=== PATIENT | female | born 1980 | race African-American/Black ===

== ENCOUNTER 2024-06-13 04:20 | Emergency (ER) | payer MEDICAID ==
[~2024-06-13] VITALS: Ht 175.3 cm; Wt 74.0 kg
[~2024-06-13 04:20] MED LIST: AMOX1TAB16 MT; HYDR25TA PO; HYDR45CR12 TP; LISI10TA26 PO
[2024-06-13 04:22] VITALS: O2SAT 99
[2024-06-13 06:17] LABS: BASOPHILS % 0.3 % (0.0-2.0); EOSINOPHILS % 0.1 % (0.0-5.0); HEMATOCRIT. 41.1 % (36.0-48.0); HEMOGLOBIN. 13.2 g/dL (12.0-16.0); LYMPHOCYTES % 32.3 % (20.0-50.0); MEAN CORPUSCULAR HEMOGLOBIN 28.9 pg (28.0-32.0); MEAN CORPUSCULAR HGB CONC 32.2 g/dL (31.0-37.0); MEAN CORPUSCULAR VOLUME 89.8 fL (81.0-99.0); MEAN PLATELET VOLUME 8.7 fl (7.4-10.4); MONOCYTES % 3.5 % (2.0-8.0); NEUTROPHILS % 63.8 % (40.0-76.0); PLATELET 258 x1000/uL (130-400); RED BLOOD CELL COUNT 4.57 mill/uL (4.2-5.4); RED CELL DISTRIBUTION WIDTH 15.5 % (11.6-14.6); WHITE BLOOD COUNT 10.2 x1000/uL (4.5-11.0)
[2024-06-13 06:41] LABS: CHLORIDE 107 mEq/L (98-107); POTASSIUM 3.7 mEq/L (3.5-5.1); SODIUM 143 mEq/L (136-145)
[2024-06-13 06:42] LABS: CARBON DIOXIDE 19 mEq/L (21-32)
[2024-06-13 06:47] LABS: CREATININE 0.9 mg/dL (0.6-1.0); GLUCOSE 65 mg/dL (70-105); UREA NITROGEN BLOOD 12 mg/dL (9-23)
[2024-06-13 06:57] LABS: ETHANOL BLOOD 283 mg/dL (<10)
[2024-06-13] MEDS: ONDANSETRON HCL 4MG TABLET PO ONE (07:02)
[2024-06-13 07:05] LABS: HCG SCREEN NEGATIVE
[2024-06-13 12:35] LABS: CALCIUM 9.8 mg/dL (8.7-10.4)
[2024-06-13] MEDS ORDERED: AMOX1TAB16 MT (17:14)
[2024-06-13] MEDS: MAGNESIUM/ALUMINUM HYDROXIDE/SIMETHICONE 30ML UDC PO ONE (17:17)
[2024-06-13] MEDS: LORAZEPAM 1MG TABLET PO ONE (17:17)
[2024-06-13] MEDS: AMOXICILLIN/POTASSIUM CLAVULANATE 875/125MG TAB PO SCH (17:17)
[2024-06-13] MEDS: ACETAMINOPHEN 325MG TABLET PO ONE (17:18)
[2024-06-13] MEDS: TETANUS, DIPHTHERIA, PERTUSSIS VAC/PF 0.5ML (>10YR OLD) IM ONE (18:44)
[2024-06-13 20:25] LABS: CLARITY URINE CLOUDY (CLEAR); COLOR URINE YELLOW (YELLOW); GLUCOSE URINE NEGATIVE (NEGATIVE); KETONES URINE 2+ (NEGATIVE); LEUKOCYTE ESTERASE URINE TRACE (NEGATIVE); NITRITE URINE NEGATIVE (NEGATIVE); OCCULT BLOOD URINE NEGATIVE (NEGATIVE); PH URINE 5.5 (4.5-8.0); PROTEIN URINE TRACE (NEGATIVE); SPECIFIC GRAVITY URINE 1.023 (1.005-1.030); UROBILINOGEN URINE 0.2 E.U./dL (0.2-1.0)
[2024-06-13] MEDS: RISPERIDONE 0.5MG TABLET PO SCH (20:32)
[2024-06-13 20:41] LABS: BACTERIA URINE 3+; RBC URINE 0-2 /hpf (0-2); SQUAMOUS EPITHELIAL CELL URINE 2+ /lpf (RARE/1+)
[2024-06-13 20:45] LABS: *AMPHETAMINES SCREEN URINE PRESUMPTIVE POSITIVE (NEGATIVE); *BARBITURATES SCREEN URINE NEGATIVE (NEGATIVE); *BENZODIAZEPINES SCREEN URINE NEGATIVE (NEGATIVE); *COCAINE SCREEN URINE NEGATIVE (NEGATIVE); CANNABINOID URINE SCREEN PRESUMPTIVE POSITIVE (NEGATIVE); ECSTASY MDMA SCREEN URINE NEGATIVE (NEGATIVE); METHADONE URINE SCREEN NEGATIVE (NEGATIVE); OPIATES URINE SCREEN NEGATIVE (NEGATIVE); PHENCYCLIDINE URINE SCREEN NEGATIVE (NEGATIVE)
[2024-06-14] MEDS: ACETAMINOPHEN 325MG TABLET PO ONE (06:30)
[2024-06-14 12:15] VITALS: BP 120/86; PULSE 84; RESP 16; TEMP 36.7; O2SAT 99
[2024-06-19] MEDS ORDERED: FLUC200T51 MT (15:26)
[2024-06-19] MEDS ORDERED: CLOT15CR27 TP (15:26)
== END 2024-06-14 12:51 | disposition short-term general hospital (02) ==
LOC: ER 04:20
DX: R45.851 Suicidal ideations (principal); F20.9 Schizophrenia, unspecified; F31.9 Bipolar disorder, unspecified; F41.9 Anxiety disorder, unspecified; I10 Essential (primary) hypertension; F12.90 Cannabis use, unspecified, uncomplicated; Z59.01 Sheltered homelessness; Z79.899 Other long term (current) drug therapy; Z20.822 Contact with and (suspected) exposure to COVID-19
CPT/HCPCS: 80305; 80048; 81003; 80320; 84703; 85025; 36415 ×2; 90715; 96372; 99285; 87426; 80307; 80329; Q0162; Z7610; G0480

== ENCOUNTER 2024-06-23 23:40 | Emergency (ER) | payer MEDICAID ==
[~2024-06-23] VITALS: Ht 175.3 cm; Wt 72.0 kg
[~2024-06-23 23:40] MED LIST changes: -AMOX1TAB16 MT; +CLOT15CR27 TP; +FLUC200T51 MT
[2024-06-24 02:39] VITALS: O2SAT 98
[2024-06-24] MEDS: KETOROLAC 30MG/ML VIAL IV STA (07:00)
[2024-06-24 08:01] LABS: BASOPHILS % 0.9 % (0.0-2.0); EOSINOPHILS % 0.1 % (0.0-5.0); HEMOGLOBIN. 11.4 g/dL (12.0-16.0); LYMPHOCYTES % 39.1 % (20.0-50.0); MEAN CORPUSCULAR HEMOGLOBIN 28.3 pg (28.0-32.0); MEAN CORPUSCULAR HGB CONC 31.8 g/dL (31.0-37.0); MEAN CORPUSCULAR VOLUME 88.9 fL (81.0-99.0); MEAN PLATELET VOLUME 8.1 fl (7.4-10.4); MONOCYTES % 3.8 % (2.0-8.0); NEUTROPHILS % 56.1 % (40.0-76.0); PLATELET 312 x1000/uL (130-400); RED BLOOD CELL COUNT 4.05 mill/uL (4.2-5.4); RED CELL DISTRIBUTION WIDTH 16.1 % (11.6-14.6); WHITE BLOOD COUNT 6.7 x1000/uL (4.5-11.0)
[2024-06-24 08:09] LABS: CHLORIDE 108 mEq/L (98-107); POTASSIUM 3.9 mEq/L (3.5-5.1); SODIUM 140 mEq/L (136-145)
[2024-06-24 08:10] LABS: CARBON DIOXIDE 19 mEq/L (21-32)
[2024-06-24 08:11] LABS: CALCIUM 9.4 mg/dL (8.7-10.4)
[2024-06-24 08:15] LABS: GLUCOSE 67 mg/dL (70-105)
[2024-06-24 08:16] LABS: TROPONIN I HIGH SENSITIVITY 4 ng/L (3.0-34); UREA NITROGEN BLOOD 12 mg/dL (9-23)
[2024-06-24 09:24] LABS: CLARITY URINE CLOUDY (CLEAR); COLOR URINE YELLOW (YELLOW); GLUCOSE URINE NEGATIVE (NEGATIVE); KETONES URINE NEGATIVE (NEGATIVE); LEUKOCYTE ESTERASE URINE NEGATIVE (NEGATIVE); NITRITE URINE NEGATIVE (NEGATIVE); OCCULT BLOOD URINE 3+ (NEGATIVE); PH URINE 5.5 (4.5-8.0); PROTEIN URINE 1+ (NEGATIVE); SPECIFIC GRAVITY URINE 1.011 (1.005-1.030); UROBILINOGEN URINE 0.2 E.U./dL (0.2-1.0)
[2024-06-24] MEDS: VISCOUS LIDOCAINE 2% 15 ML UDC PO ONE (09:59)
[2024-06-24] MEDS: MAGNESIUM/ALUMINUM HYDROXIDE/SIMETHICONE 30ML UDC PO ONE (09:59)
[2024-06-24 10:21] LABS: SQUAMOUS EPITHELIAL CELL URINE 3+ /lpf (RARE/1+)
[2024-06-24 10:23] LABS: BACTERIA URINE 2+
[2024-06-24 10:24] LABS: WBC URINE 0-2 /hpf (0-2)
[2024-06-24] MEDS: DICYCLOMINE 10 MG/5 ML ORAL SYR PO ONE (12:49)
[2024-06-24] MEDS: ONDANSETRON HCL 4MG/2ML INJ IV ONE (12:49)
[2024-06-24] MEDS: ACETAMINOPHEN 325MG TABLET PO ONE (12:49)
[2024-06-24] MEDS: SODIUM CHLORIDE 0.9% 1,000 ML IV ONE (12:53)
[2024-06-24 14:28] VITALS: BP 121/78; PULSE 72; RESP 16; TEMP 36.7; O2SAT 97
== END 2024-06-24 14:29 | disposition home or self-care (01) ==
LOC: ER 23:40
DX: R07.89 Other chest pain (principal); R11.2 Nausea with vomiting, unspecified; F41.9 Anxiety disorder, unspecified; F31.9 Bipolar disorder, unspecified; F20.9 Schizophrenia, unspecified; I10 Essential (primary) hypertension; Z79.899 Other long term (current) drug therapy
CPT/HCPCS: 99285; 96374; 71045; 96361; 96375; 80048; 81003; 81025; 85025; 84484; 36415; 93005; J1885; J2405; J7030

== ENCOUNTER 2024-07-07 21:39 | Emergency (ER) | payer MEDICAID ==
[~2024-07-07] VITALS: Ht 177.8 cm; Wt 76.0 kg
[2024-07-07 22:20] VITALS: TEMP 36.8; O2SAT 100
[2024-07-07 23:03] LABS: BASOPHILS % 0.9 % (0.0-2.0); HEMATOCRIT. 36.7 % (36.0-48.0); LYMPHOCYTES % 25.8 % (20.0-50.0); MEAN CORPUSCULAR HEMOGLOBIN 28.9 pg (28.0-32.0); MEAN CORPUSCULAR HGB CONC 32.6 g/dL (31.0-37.0); MEAN CORPUSCULAR VOLUME 88.7 fL (81.0-99.0); MEAN PLATELET VOLUME 7.9 fl (7.4-10.4); MONOCYTES % 5.8 % (2.0-8.0); NEUTROPHILS % 67.5 % (40.0-76.0); PLATELET 262 x1000/uL (130-400); RED BLOOD CELL COUNT 4.14 mill/uL (4.2-5.4); RED CELL DISTRIBUTION WIDTH 16.8 % (11.6-14.6); WHITE BLOOD COUNT 6.7 x1000/uL (4.5-11.0)
[2024-07-07 23:11] LABS: CHLORIDE 103 mEq/L (98-107); SODIUM 140 mEq/L (136-145)
[2024-07-07 23:12] LABS: CALCIUM 9.5 mg/dL (8.7-10.4); CARBON DIOXIDE 24 mEq/L (21-32)
[2024-07-07 23:14] LABS: HCG SCREEN NEGATIVE
[2024-07-07 23:17] LABS: CREATININE 1.1 mg/dL (0.6-1.0); GLUCOSE 68 mg/dL (70-105)
[2024-07-07 23:18] LABS: ETHANOL BLOOD 300 mg/dL (<10); TROPONIN I HIGH SENSITIVITY 6 ng/L (3.0-34); UREA NITROGEN BLOOD 11 mg/dL (9-23)
[2024-07-07 23:19] LABS: ACETAMINOPHEN < 2 ug/mL (10-30); ALANINE AMINOTRANSFERASE 27 IU/L (10-49); ALBUMIN 4.3 g/dL (3.2-4.8); ASPARTATE AMINOTRANSFERASE 33 IU/L (<34); BILIRUBIN DIRECT 0.2 mg/dL (<=3.0)
[2024-07-07 23:20] LABS: BILIRUBIN TOTAL 0.5 mg/dL (0.1-1.0); PROTEIN TOTAL 8.3 g/dL (6.0-8.3)
[2024-07-08 00:43] LABS: TROPONIN I HIGH SENSITIVITY 6 ng/L (3.0-34)
[2024-07-08] MEDS: LORAZEPAM 1MG TABLET PO ONE (05:58)
[2024-07-08] MEDS: ONDANSETRON 4MG ODT PO ONE (05:59)
[2024-07-08 11:33] VITALS: BP 138/78; PULSE 68; RESP 18; O2SAT 97
[2024-07-08 11:51] LABS: CLARITY URINE CLEAR (CLEAR); COLOR URINE YELLOW (YELLOW); GLUCOSE URINE NEGATIVE (NEGATIVE); KETONES URINE 3+ (NEGATIVE); LEUKOCYTE ESTERASE URINE NEGATIVE (NEGATIVE); NITRITE URINE NEGATIVE (NEGATIVE); OCCULT BLOOD URINE 2+ (NEGATIVE); PH URINE 5.5 (4.5-8.0); PROTEIN URINE TRACE (NEGATIVE); SPECIFIC GRAVITY URINE 1.023 (1.005-1.030)
[2024-07-08 12:14] LABS: *AMPHETAMINES SCREEN URINE PRESUMPTIVE POSITIVE (NEGATIVE); *BARBITURATES SCREEN URINE NEGATIVE (NEGATIVE); *BENZODIAZEPINES SCREEN URINE NEGATIVE (NEGATIVE); *COCAINE SCREEN URINE PRESUMPTIVE POSITIVE (NEGATIVE); CANNABINOID URINE SCREEN PRESUMPTIVE POSITIVE (NEGATIVE); ECSTASY MDMA SCREEN URINE NEGATIVE (NEGATIVE); METHADONE URINE SCREEN NEGATIVE (NEGATIVE); OPIATES URINE SCREEN NEGATIVE (NEGATIVE); PHENCYCLIDINE URINE SCREEN NEGATIVE (NEGATIVE)
[2024-07-08 12:16] LABS: RBC URINE 25-50 /hpf (0-2); WBC URINE NONE SEEN /hpf (0-2)
[2024-07-08 12:17] LABS: BACTERIA URINE TRACE; SQUAMOUS EPITHELIAL CELL URINE 1+ /lpf (RARE/1+)
== END 2024-07-08 11:27 ==
LOC: ER 21:39
DX: R45.851 Suicidal ideations (principal); F19.10 Other psychoactive substance abuse, uncomplicated; F41.9 Anxiety disorder, unspecified; F20.9 Schizophrenia, unspecified; F31.9 Bipolar disorder, unspecified; I10 Essential (primary) hypertension; Z20.822 Contact with and (suspected) exposure to COVID-19; Z79.899 Other long term (current) drug therapy
CPT/HCPCS: 80076; 80048; 80307; 80329; 80320; 84703; 83690; 85025; 84484 ×2; 36415; 71045; 93005; 99285; 80305; 81003; 87426; Q0162; G0480

== ENCOUNTER 2024-07-11 13:23 | Emergency (ER) | payer MEDICAID ==
[~2024-07-11] VITALS: Ht 172.7 cm; Wt 82.0 kg
[2024-07-11 13:27] VITALS: O2SAT 100
[2024-07-11] MEDS: DICYCLOMINE 10 MG/5 ML ORAL SYR PO STA (14:14)
[2024-07-11] MEDS: DICYCLOMINE HCL 10MG CAPSULE PO NR (14:32)
[2024-07-11] MEDS: ONDANSETRON 4MG ODT PO STA (14:32)
[2024-07-11 15:44] LABS: BASOPHILS % 0.5 % (0.0-2.0); EOSINOPHILS % 0.1 % (0.0-5.0); HEMATOCRIT. 38.9 % (36.0-48.0); HEMOGLOBIN. 12.8 g/dL (12.0-16.0); LYMPHOCYTES % 36.9 % (20.0-50.0); MEAN CORPUSCULAR VOLUME 87.8 fL (81.0-99.0); MEAN PLATELET VOLUME 8.2 fl (7.4-10.4); MONOCYTES % 6.1 % (2.0-8.0); NEUTROPHILS % 56.4 % (40.0-76.0); PLATELET 286 x1000/uL (130-400); RED BLOOD CELL COUNT 4.43 mill/uL (4.2-5.4); RED CELL DISTRIBUTION WIDTH 16.1 % (11.6-14.6)
[2024-07-11 15:53] LABS: CHLORIDE 95 mEq/L (98-107); POTASSIUM 4.1 mEq/L (3.5-5.1); SODIUM 134 mEq/L (136-145)
[2024-07-11 15:54] LABS: CALCIUM 9.3 mg/dL (8.7-10.4); CARBON DIOXIDE 27 mEq/L (21-32)
[2024-07-11 15:57] LABS: HCG SCREEN NEGATIVE
[2024-07-11 15:59] LABS: CREATININE 1.1 mg/dL (0.6-1.0); GLUCOSE 77 mg/dL (70-105); UREA NITROGEN BLOOD 9 mg/dL (9-23)
[2024-07-11] MEDS: LORAZEPAM 1MG TABLET PO ONE (17:32)
[2024-07-11] MEDS: ACETAMINOPHEN 325MG TABLET PO STA (19:39)
[2024-07-12] MEDS: MAGNESIUM/ALUMINUM HYDROXIDE/SIMETHICONE 30ML UDC PO ONE ×2 (01:44→01:49)
[2024-07-12] MEDS: DIPHENHYDRAMINE 25MG CAPSULE PO ONE ×2 (01:44→01:48)
[2024-07-12 02:52] LABS: *AMPHETAMINES SCREEN URINE PRESUMPTIVE POSITIVE (NEGATIVE); *BARBITURATES SCREEN URINE NEGATIVE (NEGATIVE); *BENZODIAZEPINES SCREEN URINE NEGATIVE (NEGATIVE); *COCAINE SCREEN URINE NEGATIVE (NEGATIVE)
[2024-07-12 02:53] LABS: CANNABINOID URINE SCREEN PRESUMPTIVE POSITIVE (NEGATIVE); ECSTASY MDMA SCREEN URINE NEGATIVE (NEGATIVE); METHADONE URINE SCREEN NEGATIVE (NEGATIVE); OPIATES URINE SCREEN NEGATIVE (NEGATIVE); PHENCYCLIDINE URINE SCREEN NEGATIVE (NEGATIVE)
[2024-07-12 03:03] LABS: CLARITY URINE CLEAR (CLEAR); COLOR URINE YELLOW (YELLOW); SPECIFIC GRAVITY URINE 1.022 (1.005-1.030)
[2024-07-12 03:08] LABS: GLUCOSE URINE NEGATIVE (NEGATIVE); KETONES URINE 1+ (NEGATIVE); LEUKOCYTE ESTERASE URINE NEGATIVE (NEGATIVE); NITRITE URINE NEGATIVE (NEGATIVE); OCCULT BLOOD URINE NEGATIVE (NEGATIVE); PH URINE 5.5 (4.5-8.0); PROTEIN URINE NEGATIVE (NEGATIVE)
[2024-07-12 17:08] VITALS: BP 117/75; PULSE 95; RESP 16; TEMP 36.9; O2SAT 98
[2024-07-12] MEDS ORDERED: RISPERIDONE 0.5MG TABLET PO SCH (21:00)
== END 2024-07-12 17:32 ==
LOC: ER 13:41
DX: R45.851 Suicidal ideations (principal); F31.9 Bipolar disorder, unspecified; F41.0 Panic disorder [episodic paroxysmal anxiety]; F20.9 Schizophrenia, unspecified; I10 Essential (primary) hypertension; Z79.899 Other long term (current) drug therapy; Z20.822 Contact with and (suspected) exposure to COVID-19
CPT/HCPCS: 80048; 80307; 80329; 84703; 83690; 85025; 36415; 71045; 93005; 99285; 80305; 81003; 87426; Q0162; Q0163

== ENCOUNTER 2024-07-20 01:06 | Emergency (ER) | payer MEDICAID, OTHER ==
[~2024-07-20] VITALS: Ht 167.6 cm; Wt 73.0 kg
[2024-07-20 01:08] VITALS: TEMP 36.8; O2SAT 99
[2024-07-20] MEDS ORDERED: ACETAMINOPHEN 325MG TABLET PO ONE (01:15)
[2024-07-20 02:10] LABS: BASOPHILS % 0.7 % (0.0-2.0); EOSINOPHILS % 0.2 % (0.0-5.0); HEMATOCRIT. 34.6 % (36.0-48.0); HEMOGLOBIN. 11.4 g/dL (12.0-16.0); LYMPHOCYTES % 39.7 % (20.0-50.0); MEAN CORPUSCULAR HEMOGLOBIN 28.6 pg (28.0-32.0); MEAN CORPUSCULAR HGB CONC 32.9 g/dL (31.0-37.0); MEAN CORPUSCULAR VOLUME 87.1 fL (81.0-99.0); MEAN PLATELET VOLUME 7.6 fl (7.4-10.4); MONOCYTES % 9.7 % (2.0-8.0); NEUTROPHILS % 49.7 % (40.0-76.0); PLATELET 290 x1000/uL (130-400); RED BLOOD CELL COUNT 3.97 mill/uL (4.2-5.4); RED CELL DISTRIBUTION WIDTH 15.5 % (11.6-14.6); WHITE BLOOD COUNT 6.1 x1000/uL (4.5-11.0)
[2024-07-20 02:18] LABS: CHLORIDE 102 mEq/L (98-107); POTASSIUM 3.7 mEq/L (3.5-5.1); SODIUM 136 mEq/L (136-145)
[2024-07-20 02:19] LABS: CALCIUM 9.3 mg/dL (8.7-10.4); CARBON DIOXIDE 25 mEq/L (21-32)
[2024-07-20 02:24] LABS: CREATININE 0.9 mg/dL (0.6-1.0); GLUCOSE 97 mg/dL (70-105)
[2024-07-20 02:25] LABS: UREA NITROGEN BLOOD 6 mg/dL (9-23)
[2024-07-20 02:26] LABS: ALANINE AMINOTRANSFERASE 31 IU/L (10-49); ALBUMIN 4.4 g/dL (3.2-4.8); ASPARTATE AMINOTRANSFERASE 26 IU/L (<34); BILIRUBIN DIRECT 0.1 mg/dL (<=3.0)
[2024-07-20 02:27] LABS: BILIRUBIN TOTAL 0.3 mg/dL (0.1-1.0); PROTEIN TOTAL 8.8 g/dL (6.0-8.3)
[2024-07-20] MEDS ORDERED: ACET-2708 MT (02:44)
[2024-07-20 02:46] LABS: PROTHROMBIN TIME 10.4 sec (9.6-11.0)
[2024-07-20 02:55] VITALS: BP 145/105; PULSE 99; RESP 18; O2SAT 99
== END 2024-07-20 03:04 | disposition home or self-care (01) ==
LOC: ER 01:06
DX: R10.9 Unspecified abdominal pain (principal); F12.10 Cannabis abuse, uncomplicated; I10 Essential (primary) hypertension; F32.A Depression, unspecified; Z00.00 Encounter for general adult medical examination without abnormal findings; Z79.899 Other long term (current) drug therapy; Z86.59 Personal history of other mental and behavioral disorders
CPT/HCPCS: 36415; 80048; 80076; 85025; 99283

== ENCOUNTER 2024-07-22 19:09 | Emergency (ER) | payer OTHER ==
[~2024-07-22] VITALS: Ht 170.2 cm; Wt 68.0 kg
[~2024-07-22 19:09] MED LIST changes: +ACET-2708 MT
[2024-07-22 19:12] VITALS: BP 137/99; PULSE 88; RESP 16; TEMP 36.9; O2SAT 98
== END 2024-07-22 19:28 | disposition home or self-care (01) ==
LOC: ER 19:09
DX: R07.89 Other chest pain (principal); F20.9 Schizophrenia, unspecified; I10 Essential (primary) hypertension; F32.A Depression, unspecified; F12.90 Cannabis use, unspecified, uncomplicated; Z79.899 Other long term (current) drug therapy
CPT/HCPCS: 99283

== ENCOUNTER 2024-07-30 03:37 | Emergency (ER) | payer OTHER ==
[~2024-07-30] VITALS: Ht 172.7 cm; Wt 72.6 kg
[2024-07-30 03:39] VITALS: TEMP 36.8; O2SAT 100
[2024-07-30 04:01] VITALS: BP 141/100; PULSE 69; RESP 14; O2SAT 100
[2024-07-30] MEDS: LORAZEPAM 1MG TABLET PO ONE (04:17)
== END 2024-07-30 04:36 | disposition home or self-care (01) ==
LOC: ER 04:18
DX: R07.89 Other chest pain (principal); F41.9 Anxiety disorder, unspecified; F20.9 Schizophrenia, unspecified; I10 Essential (primary) hypertension; Z79.899 Other long term (current) drug therapy
CPT/HCPCS: 71045; 99283

== ENCOUNTER 2024-10-25 15:29 | Emergency (ER) | payer OTHER ==
[~2024-10-25] VITALS: Ht 177.8 cm; Wt 72.0 kg
[2024-10-25 15:40] VITALS: O2SAT 100
[2024-10-25] MEDS ORDERED: FAMOTIDINE 20MG/2ML VIAL IV ONE (16:45)
[2024-10-25] MEDS ORDERED: ONDANSETRON HCL 4MG/2ML INJ IV ONE (16:45)
[2024-10-25] MEDS ORDERED: KETOROLAC 15MG/ML VIAL IV ONE (16:45)
[2024-10-25 18:27] LABS: BASOPHILS % 1.1 % (0.0-2.0); EOSINOPHILS % 1.8 % (0.0-5.0); HEMATOCRIT. 36.0 % (36.0-48.0); HEMOGLOBIN. 11.8 g/dL (12.0-16.0); LYMPHOCYTES % 23.2 % (20.0-50.0); MEAN PLATELET VOLUME 8.6 fl (7.4-10.4); MONOCYTES % 7.7 % (2.0-8.0); NEUTROPHILS % 66.2 % (40.0-76.0); PLATELET 282 x1000/uL (130-400); RED BLOOD CELL COUNT 4.16 mill/uL (4.2-5.4); RED CELL DISTRIBUTION WIDTH 14.5 % (11.6-14.6)
[2024-10-25] MEDS: KETOROLAC 15MG/ML VIAL IV NR (18:31)
[2024-10-25] MEDS: SODIUM CHLORIDE 0.9% 1,000 ML IV ONE (18:31)
[2024-10-25] MEDS: FAMOTIDINE 20MG/2ML VIAL IV NR (18:31)
[2024-10-25] MEDS: ONDANSETRON HCL 4MG/2ML INJ IV NR (18:32)
[2024-10-25 18:40] LABS: CREATININE 0.8 mg/dL (0.6-1.0); INR 1.0; UREA NITROGEN BLOOD 6 mg/dL (9-23)
[2024-10-25 18:42] LABS: ASPARTATE AMINOTRANSFERASE 52 IU/L (<34); BILIRUBIN DIRECT 0.2 mg/dL (<=3.0); BILIRUBIN TOTAL 0.5 mg/dL (0.1-1.0); PROTEIN TOTAL 7.7 g/dL (6.0-8.3)
[2024-10-25 19:15] LABS: INFLUENZA TYPE A Presumptive Negative (Pres. Neg.)
[2024-10-25 19:16] LABS: INFLUENZA TYPE B Presumptive Negative (Pres. Neg.)
[2024-10-25 19:17] LABS: RESPIRATORY SYNCYTIAL VIRUS Not Detected (Not Detectd)
[2024-10-25] MEDS ORDERED: CEPH500T MT (21:21)
[2024-10-25] MEDS ORDERED: ONDA-239 PO (21:21)
[2024-10-25] MEDS ORDERED: KETO10TA2 MT (21:21)
[2024-10-25] MEDS: ONDANSETRON 4MG ODT PO ONE (22:05)
[2024-10-25] MEDS: LORAZEPAM 1MG TABLET PO ONE (22:05)
[2024-10-25 22:11] VITALS: BP 131/79; PULSE 74; RESP 16; TEMP 36.7; O2SAT 97
== END 2024-10-25 22:14 | disposition home or self-care (01) ==
LOC: ER 15:29
DX: J06.9 Acute upper respiratory infection, unspecified (principal); B97.89 Other viral agents as the cause of diseases classified elsewhere; F20.9 Schizophrenia, unspecified; F41.9 Anxiety disorder, unspecified; I10 Essential (primary) hypertension; F31.9 Bipolar disorder, unspecified; Z79.899 Other long term (current) drug therapy; Z20.822 Contact with and (suspected) exposure to COVID-19; Z98.890 Other specified postprocedural states
CPT/HCPCS: 80076; 80048; 85025; 85610; 87420; 87804 ×2; 36415; 71045; 96361; 96374; 96375; 99285; 87426; Q0162; J1308; J1885; J2405; J7030; Z7610 ×3

== ENCOUNTER 2024-10-26 04:35 | Emergency (ER) | payer OTHER ==
[~2024-10-26] VITALS: Ht 167.6 cm; Wt 73.0 kg
[~2024-10-26 04:35] MED LIST changes: +CEPH500T MT; +KETO10TA2 MT; +ONDA-239 PO
[2024-10-26 04:46] VITALS: O2SAT 98
[2024-10-26 06:03] LABS: BASOPHILS % 1.1 % (0.0-2.0); EOSINOPHILS % 5.1 % (0.0-5.0); HEMATOCRIT. 35.5 % (36.0-48.0); HEMOGLOBIN. 11.4 g/dL (12.0-16.0); LYMPHOCYTES % 26.1 % (20.0-50.0); MEAN PLATELET VOLUME 8.2 fl (7.4-10.4); MONOCYTES % 10.0 % (2.0-8.0); NEUTROPHILS % 57.7 % (40.0-76.0); PLATELET 261 x1000/uL (130-400); RED BLOOD CELL COUNT 4.03 mill/uL (4.2-5.4); RED CELL DISTRIBUTION WIDTH 14.6 % (11.6-14.6)
[2024-10-26 06:20] LABS: CREATININE 1.0 mg/dL (0.6-1.0); ETHANOL BLOOD < 10 mg/dL (<10); UREA NITROGEN BLOOD 7 mg/dL (9-23)
[2024-10-26 07:50] LABS: HCG SCREEN NEGATIVE
[2024-10-26 15:02] LABS: CLARITY URINE CLEAR (CLEAR); COLOR URINE YELLOW (YELLOW); GLUCOSE URINE NEGATIVE (NEGATIVE); KETONES URINE TRACE (NEGATIVE); LEUKOCYTE ESTERASE URINE NEGATIVE (NEGATIVE); NITRITE URINE NEGATIVE (NEGATIVE); OCCULT BLOOD URINE NEGATIVE (NEGATIVE); PH URINE 6.5 (4.5-8.0); PROTEIN URINE NEGATIVE (NEGATIVE); SPECIFIC GRAVITY URINE 1.016 (1.005-1.030); UROBILINOGEN URINE 1.0 E.U./dL (0.2-1.0)
[2024-10-26 15:32] LABS: *AMPHETAMINES SCREEN URINE PRESUMPTIVE POSITIVE (NEGATIVE); *BARBITURATES SCREEN URINE NEGATIVE (NEGATIVE); *BENZODIAZEPINES SCREEN URINE NEGATIVE (NEGATIVE)
[2024-10-26 15:33] LABS: *COCAINE SCREEN URINE PRESUMPTIVE POSITIVE (NEGATIVE); CANNABINOID URINE SCREEN PRESUMPTIVE POSITIVE (NEGATIVE); ECSTASY MDMA SCREEN URINE NEGATIVE (NEGATIVE); METHADONE URINE SCREEN NEGATIVE (NEGATIVE); OPIATES URINE SCREEN NEGATIVE (NEGATIVE); PHENCYCLIDINE URINE SCREEN PRESUMTIVE POSITIVE (NEGATIVE)
[2024-10-26 19:30] VITALS: BP 122/77; PULSE 83; RESP 20; TEMP 36.9; O2SAT 99
== END 2024-10-26 19:30 | disposition home or self-care (01) ==
LOC: ER 04:35
DX: R45.851 Suicidal ideations (principal); F12.10 Cannabis abuse, uncomplicated; F17.200 Nicotine dependence, unspecified, uncomplicated; I10 Essential (primary) hypertension; Z20.822 Contact with and (suspected) exposure to COVID-19; Z86.59 Personal history of other mental and behavioral disorders; Z79.899 Other long term (current) drug therapy
CPT/HCPCS: 36415; 80048; 80305; 80307; 80320; 80329; 81003; 84703; 85025; 87426; 99291; G0480

== ENCOUNTER 2024-10-30 01:40 | Emergency (ER) | payer OTHER ==
[~2024-10-30] VITALS: Ht 177.8 cm; Wt 72.0 kg
[2024-10-30 01:45] VITALS: O2SAT 95
[2024-10-30 01:50] VITALS: BP 169/103; PULSE 106; RESP 18; TEMP 36.8; O2SAT 100
[2024-10-30 03:17] LABS: CREATININE 0.9 mg/dL (0.6-1.0); UREA NITROGEN BLOOD < 5 mg/dL (9-23)
[2024-10-30 04:26] LABS: TROPONIN I HIGH SENSITIVITY 7 ng/L (3.0-34)
== END 2024-10-30 04:09 | disposition left against medical advice (07) ==
LOC: ER 01:40
DX: R07.89 Other chest pain (principal); R06.02 Shortness of breath; R11.2 Nausea with vomiting, unspecified; R10.13 Epigastric pain; Z53.21 Procedure and treatment not carried out due to patient leaving prior to being seen by health care provider
CPT/HCPCS: 36415; 71045; 80048; 84484; 93005

== ENCOUNTER 2024-11-01 14:43 | Emergency (ER) | payer OTHER ==
[~2024-11-01] VITALS: Ht 165.1 cm; Wt 64.0 kg
[2024-11-01 14:46] VITALS: O2SAT 100
[2024-11-01 14:49] VITALS: BP 125/83; PULSE 99; RESP 18; TEMP 36.8; O2SAT 100
[2024-11-01 15:27] LABS: BASOPHILS % 1.1 % (0.0-2.0); EOSINOPHILS % 5.7 % (0.0-5.0); HEMATOCRIT. 32.9 % (36.0-48.0); HEMOGLOBIN. 10.7 g/dL (12.0-16.0); LYMPHOCYTES % 25.9 % (20.0-50.0); MEAN PLATELET VOLUME 8.4 fl (7.4-10.4); MONOCYTES % 9.5 % (2.0-8.0); NEUTROPHILS % 57.8 % (40.0-76.0); PLATELET 276 x1000/uL (130-400); RED BLOOD CELL COUNT 3.79 mill/uL (4.2-5.4); RED CELL DISTRIBUTION WIDTH 14.5 % (11.6-14.6)
[2024-11-01 15:43] LABS: CREATININE 1.0 mg/dL (0.6-1.0); UREA NITROGEN BLOOD 10 mg/dL (9-23)
[2024-11-01 15:45] LABS: TROPONIN I HIGH SENSITIVITY < 4 ng/L (3.0-34)
[2024-11-01 15:50] LABS: HCG SCREEN NEGATIVE
[2024-11-01] MEDS ORDERED: NITR-87 MT (15:53)
[2024-11-01] MEDS ORDERED: TOPUD MT (15:53)
== END 2024-11-01 16:17 | disposition home or self-care (01) ==
LOC: ER 14:43
DX: N30.00 Acute cystitis without hematuria (principal); F20.9 Schizophrenia, unspecified; I10 Essential (primary) hypertension; F41.9 Anxiety disorder, unspecified; F12.90 Cannabis use, unspecified, uncomplicated; Z79.899 Other long term (current) drug therapy
CPT/HCPCS: 36415; 71045; 80048; 83880; 84484; 84703; 85025; 93005; 99285

== ENCOUNTER 2024-11-02 11:40 | Emergency (ER) | payer OTHER ==
[~2024-11-02] VITALS: Ht 180.3 cm; Wt 70.0 kg
[~2024-11-02 11:40] MED LIST changes: +NITR-87 MT; +TOPUD MT
[2024-11-02 11:45] VITALS: O2SAT 100
[2024-11-02 11:49] VITALS: BP 126/99; PULSE 100; RESP 16; TEMP 36.7; O2SAT 100
[2024-11-02 12:39] LABS: BASOPHILS % 0.9 % (0.0-2.0); EOSINOPHILS % 5.7 % (0.0-5.0); HEMATOCRIT. 34.2 % (36.0-48.0); HEMOGLOBIN. 10.9 g/dL (12.0-16.0); LYMPHOCYTES % 30.2 % (20.0-50.0); MEAN PLATELET VOLUME 8.2 fl (7.4-10.4); MONOCYTES % 11.4 % (2.0-8.0); NEUTROPHILS % 51.8 % (40.0-76.0); PLATELET 298 x1000/uL (130-400); RED BLOOD CELL COUNT 3.93 mill/uL (4.2-5.4); RED CELL DISTRIBUTION WIDTH 14.4 % (11.6-14.6)
[2024-11-02 12:58] LABS: CREATININE 1.0 mg/dL (0.6-1.0)
[2024-11-02 12:59] LABS: TROPONIN I HIGH SENSITIVITY < 4 ng/L (3.0-34); UREA NITROGEN BLOOD 10 mg/dL (9-23)
[2024-11-02] MEDS ORDERED: LORAZEPAM 1MG TABLET PO ONE (13:30)
[2024-11-02 15:02] LABS: HCG SCREEN NEGATIVE
== END 2024-11-02 15:52 | disposition left against medical advice (07) ==
LOC: ER 11:40
DX: R06.02 Shortness of breath (principal); F12.90 Cannabis use, unspecified, uncomplicated; F41.9 Anxiety disorder, unspecified; F20.9 Schizophrenia, unspecified; I10 Essential (primary) hypertension; Z79.899 Other long term (current) drug therapy
CPT/HCPCS: 36415; 71045; 80048; 84484; 84703; 85025; 85379; 93005; 99285

== ENCOUNTER 2024-11-04 10:27 | Emergency (ER) | payer OTHER ==
[~2024-11-04] VITALS: Ht 177.8 cm; Wt 72.0 kg
[2024-11-04 10:29] VITALS: O2SAT 99
[2024-11-04 10:36] VITALS: BP 150/100; PULSE 86; RESP 18; TEMP 36.8; O2SAT 99
== END 2024-11-04 14:52 | disposition left against medical advice (07) ==
LOC: ER 10:27
DX: Z00.8 Encounter for other general examination (principal); Z59.01 Sheltered homelessness; I10 Essential (primary) hypertension; F20.9 Schizophrenia, unspecified; F12.90 Cannabis use, unspecified, uncomplicated; Z79.899 Other long term (current) drug therapy
CPT/HCPCS: 99281

== ENCOUNTER 2024-11-23 17:53 | Emergency (ER) | payer OTHER ==
[~2024-11-23] VITALS: Ht 170.2 cm; Wt 70.0 kg
[2024-11-23 17:57] VITALS: O2SAT 99
[2024-11-23 17:58] VITALS: BP 160/99; PULSE 82; RESP 18; TEMP 36.9; O2SAT 99
== END 2024-11-23 20:15 | disposition left against medical advice (07) ==
LOC: ER 17:53
DX: R06.02 Shortness of breath (principal); Z53.21 Procedure and treatment not carried out due to patient leaving prior to being seen by health care provider

== ENCOUNTER 2024-11-26 03:44 | Emergency (ER) | payer OTHER ==
[~2024-11-26] VITALS: Ht 175.3 cm; Wt 71.1 kg
[2024-11-26] MEDS: LORAZEPAM 2MG/ML UD SYRINGE IM NR (05:54)
[2024-11-26] MEDS: HALOPERIDOL LACTATE 5MG/ML VIAL IM ONE (05:54)
[2024-11-26 06:11] LABS: CLARITY URINE CLEAR (CLEAR); COLOR URINE YELLOW (YELLOW); GLUCOSE URINE NEGATIVE (NEGATIVE); KETONES URINE NEGATIVE (NEGATIVE); LEUKOCYTE ESTERASE URINE NEGATIVE (NEGATIVE); NITRITE URINE NEGATIVE (NEGATIVE); OCCULT BLOOD URINE NEGATIVE (NEGATIVE); PH URINE 5.5 (4.5-8.0); PROTEIN URINE NEGATIVE (NEGATIVE); SPECIFIC GRAVITY URINE 1.004 (1.005-1.030); UROBILINOGEN URINE 0.2 E.U./dL (0.2-1.0)
[2024-11-26 06:13] LABS: BASOPHILS % 0.3 % (0.0-2.0); EOSINOPHILS % 0.6 % (0.0-5.0); HEMATOCRIT. 34.5 % (36.0-48.0); HEMOGLOBIN. 11.0 g/dL (12.0-16.0); LYMPHOCYTES % 57.4 % (20.0-50.0); MEAN PLATELET VOLUME 8.5 fl (7.4-10.4); MONOCYTES % 4.9 % (2.0-8.0); NEUTROPHILS % 36.8 % (40.0-76.0); PLATELET 274 x1000/uL (130-400); RED BLOOD CELL COUNT 4.02 mill/uL (4.2-5.4); RED CELL DISTRIBUTION WIDTH 15.8 % (11.6-14.6)
[2024-11-26 06:23] LABS: CREATININE 1.0 mg/dL (0.6-1.0)
[2024-11-26 06:24] LABS: ETHANOL BLOOD 120 mg/dL (<10); UREA NITROGEN BLOOD 7 mg/dL (9-23)
[2024-11-26 06:25] LABS: *AMPHETAMINES SCREEN URINE NEGATIVE (NEGATIVE); *BARBITURATES SCREEN URINE NEGATIVE (NEGATIVE); *BENZODIAZEPINES SCREEN URINE NEGATIVE (NEGATIVE); ASPARTATE AMINOTRANSFERASE 26 IU/L (<34); BILIRUBIN DIRECT 0.1 mg/dL (<=3.0)
[2024-11-26 06:26] LABS: *COCAINE SCREEN URINE PRESUMPTIVE POSITIVE (NEGATIVE); BILIRUBIN TOTAL 0.4 mg/dL (0.1-1.0); CANNABINOID URINE SCREEN PRESUMPTIVE POSITIVE (NEGATIVE); ECSTASY MDMA SCREEN URINE NEGATIVE (NEGATIVE); METHADONE URINE SCREEN NEGATIVE (NEGATIVE); OPIATES URINE SCREEN NEGATIVE (NEGATIVE); PHENCYCLIDINE URINE SCREEN PRESUMTIVE POSITIVE (NEGATIVE); PROTEIN TOTAL 7.8 g/dL (6.0-8.3)
[2024-11-26 06:35] LABS: HCG SCREEN NEGATIVE
[2024-11-26 06:45] VITALS: O2SAT 98
[2024-11-26 11:00] VITALS: BP 141/85; PULSE 86; RESP 16; TEMP 36.7; O2SAT 100
== END 2024-11-26 11:15 | disposition home or self-care (01) ==
LOC: ER 03:44
DX: R45.851 Suicidal ideations (principal); U07.1 COVID-19; F31.9 Bipolar disorder, unspecified; I10 Essential (primary) hypertension; F25.9 Schizoaffective disorder, unspecified; F19.10 Other psychoactive substance abuse, uncomplicated; F12.90 Cannabis use, unspecified, uncomplicated; Z59.00 Homelessness unspecified; Z79.899 Other long term (current) drug therapy; Z98.890 Other specified postprocedural states
CPT/HCPCS: 80076; 80305; 80048; 81003; 80307; 80329; 80320; 84703; 85025; 36415; 96372; 99291; 87426; J1630; J2060; G0480

== ENCOUNTER 2024-11-26 13:35 | Emergency (ER) | payer OTHER ==
[~2024-11-26] VITALS: Ht 172.7 cm; Wt 71.0 kg
[2024-11-26 13:51] VITALS: O2SAT 98
[2024-11-26 16:41] LABS: BASOPHILS % 0.2 % (0.0-2.0); EOSINOPHILS % 1.7 % (0.0-5.0); HEMATOCRIT. 34.5 % (36.0-48.0); HEMOGLOBIN. 11.0 g/dL (12.0-16.0); LYMPHOCYTES % 38.4 % (20.0-50.0); MEAN PLATELET VOLUME 8.4 fl (7.4-10.4); MONOCYTES % 5.7 % (2.0-8.0); NEUTROPHILS % 54.0 % (40.0-76.0); PLATELET 261 x1000/uL (130-400); RED BLOOD CELL COUNT 3.99 mill/uL (4.2-5.4); RED CELL DISTRIBUTION WIDTH 15.7 % (11.6-14.6)
[2024-11-26 16:55] LABS: HCG SCREEN NEGATIVE
[2024-11-26 16:57] LABS: CREATININE 0.9 mg/dL (0.6-1.0); ETHANOL BLOOD < 10 mg/dL (<10); UREA NITROGEN BLOOD 11 mg/dL (9-23)
[2024-11-26 22:49] LABS: *AMPHETAMINES SCREEN URINE NEGATIVE (NEGATIVE); *BARBITURATES SCREEN URINE NEGATIVE (NEGATIVE); *BENZODIAZEPINES SCREEN URINE NEGATIVE (NEGATIVE); *COCAINE SCREEN URINE PRESUMPTIVE POSITIVE (NEGATIVE); METHADONE URINE SCREEN NEGATIVE (NEGATIVE)
[2024-11-26 22:50] LABS: CANNABINOID URINE SCREEN PRESUMPTIVE POSITIVE (NEGATIVE); ECSTASY MDMA SCREEN URINE NEGATIVE (NEGATIVE); OPIATES URINE SCREEN NEGATIVE (NEGATIVE); PHENCYCLIDINE URINE SCREEN PRESUMTIVE POSITIVE (NEGATIVE)
[2024-11-26 23:32] LABS: ASPARTATE AMINOTRANSFERASE 27 IU/L (<34); BILIRUBIN DIRECT 0.1 mg/dL (<=3.0); BILIRUBIN TOTAL 0.4 mg/dL (0.1-1.0); PROTEIN TOTAL 7.5 g/dL (6.0-8.3)
[2024-11-27] MEDS: QUETIAPINE FUMARATE 50MG TABLET PO SCH (03:41)
[2024-11-27 06:56] VITALS: BP 138/99; PULSE 85; RESP 18; TEMP 36.9; O2SAT 99
[2024-12-04] MEDS ORDERED: RISP1 PO (12:15)
[2024-12-04] MEDS ORDERED: VALP250S22 PO (12:15)
== END 2024-11-27 09:34 | disposition home or self-care (01) ==
LOC: ER 13:56
DX: R45.851 Suicidal ideations (principal); F19.10 Other psychoactive substance abuse, uncomplicated; F20.9 Schizophrenia, unspecified; F31.9 Bipolar disorder, unspecified; I10 Essential (primary) hypertension; Z79.899 Other long term (current) drug therapy; Z20.822 Contact with and (suspected) exposure to COVID-19
CPT/HCPCS: 80076; 80305; 80048; 80307; 80329; 80320; 84703; 85025; 36415; 93005; 99285; 87426; Z7610; G0480

== ENCOUNTER 2024-12-18 12:54 | Emergency (ER) | payer OTHER ==
[~2024-12-18] VITALS: Ht 177.8 cm; Wt 73.0 kg
[~2024-12-18 12:54] MED LIST changes: -CEPH500T MT; -CLOT15CR27 TP; -FLUC200T51 MT; -KETO10TA2 MT; -NITR-87 MT; +RISP1 PO; +VALP250S22 PO
[2024-12-18 12:56] VITALS: O2SAT 99
[2024-12-18 12:59] VITALS: BP 129/88; PULSE 83; RESP 14; TEMP 36.7; O2SAT 100
== END 2024-12-18 15:21 | disposition left against medical advice (07) ==
LOC: ER 12:54
DX: J02.9 Acute pharyngitis, unspecified (principal); R05.9 Cough, unspecified
CPT/HCPCS: 99281; 99282

== ENCOUNTER 2025-02-02 03:29 | Emergency (ER) | payer OTHER ==
[2025-02-02 03:36] VITALS: PULSE 107; RESP 18; O2SAT 98
== END 2025-02-02 04:07 | disposition left against medical advice (07) ==
LOC: ER 03:29
DX: R06.02 Shortness of breath (principal)
CPT/HCPCS: 99281

== ENCOUNTER 2025-02-18 23:09 | Emergency (ER) | payer OTHER ==
[~2025-02-18] VITALS: Ht 170.2 cm; Wt 74.0 kg
[2025-02-18 23:12] VITALS: O2SAT 98
[2025-02-19] MEDS: ONDANSETRON 4MG ODT PO ONE
[2025-02-19] MEDS: KETOROLAC 15MG/ML VIAL IM ONE (00:01)
[2025-02-19] MEDS: LORAZEPAM 1MG TABLET PO ONE (00:01)
[2025-02-19 00:12] LABS: BASOPHILS % 1.0 % (0.0-2.0); EOSINOPHILS % 0.1 % (0.0-5.0); HEMATOCRIT. 34.8 % (36.0-48.0); HEMOGLOBIN. 11.1 g/dL (12.0-16.0); LYMPHOCYTES % 14.7 % (20.0-50.0); MEAN PLATELET VOLUME 8.2 fl (7.4-10.4); MONOCYTES % 4.0 % (2.0-8.0); NEUTROPHILS % 80.2 % (40.0-76.0); PLATELET 269 x1000/uL (130-400); RED BLOOD CELL COUNT 4.00 mill/uL (4.2-5.4); RED CELL DISTRIBUTION WIDTH 15.8 % (11.6-14.6)
[2025-02-19 00:25] LABS: CREATININE 0.9 mg/dL (0.6-1.0); UREA NITROGEN BLOOD 10 mg/dL (9-23)
[2025-02-19 00:26] LABS: TROPONIN I HIGH SENSITIVITY 10 ng/L (3.0-34)
[2025-02-19 00:30] LABS: HCG SCREEN NEGATIVE
[2025-02-19] MEDS: LORAZEPAM 2MG/ML UD SYRINGE IM NR (00:58)
[2025-02-19 02:51] LABS: TROPONIN I HIGH SENSITIVITY 9 ng/L (3.0-34)
[2025-02-19 03:25] VITALS: BP 129/94; PULSE 80; RESP 15; TEMP 36.7; O2SAT 100
[2025-02-19] MEDS ORDERED: IBUP-1455 MT (03:34)
== END 2025-02-19 03:30 | disposition home or self-care (01) ==
LOC: ER 23:09
DX: R07.89 Other chest pain (principal); F31.9 Bipolar disorder, unspecified; F20.9 Schizophrenia, unspecified; F41.9 Anxiety disorder, unspecified; F12.90 Cannabis use, unspecified, uncomplicated; F14.90 Cocaine use, unspecified, uncomplicated; I10 Essential (primary) hypertension; Z79.899 Other long term (current) drug therapy
CPT/HCPCS: 99284; 71045; 80048; 84703; 85025; 84484 ×2; 36415 ×2; 93005; 96372; Q0162; J1885; J2060